=== PATIENT | male | born 1985 | race Caucasian/White ===

== ENCOUNTER 2022-08-27 03:50 | Emergency (ER) | payer OTHER ==
[~2022-08-27] VITALS: Ht 172.7 cm; Wt 77.1 kg
--- NOTE | 2022-08-27 04:00 | NUR ---
[facility] [address] [facility] L KNEE PAIN . IN [employer]'S CUSTODY. A/OX 3. TOLERATING R/A WELL WITH NO RESP DISTRESS. RR EVEN AND NON LABORED. AMBULATORY WITH STEADY GAIT. CONNECTED PT TO POX AND MONITOR. SAFETY MEASURES IN PLACE.
[2022-08-27] MEDS ORDERED: IBUPROFEN 400 MG TABLET ONE ×2 (04:16→04:18)
--- NOTE | 2022-08-27 04:20 | NUR ---
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
[2022-08-27] MEDS ORDERED: IBUPROFEN 400 MG TABLET PO ONE (04:30)
[2022-08-27 04:54] VITALS: BP 127/84
--- NOTE | 2022-08-27 04:54 | NUR ---
Patient discharged to [employer] custody in stable condition. Written and verbal after care instructions given. Patient verbalizes understanding of instruction.
== END 2022-08-27 04:55 ==
LOC: ER 03:56
DX: S20.211A Contusion of right front wall of thorax, initial encounter (principal); M25.511 Pain in right shoulder; F17.200 Nicotine dependence, unspecified, uncomplicated; Z59.00 Homelessness unspecified; Y04.2XXA Assault by strike against or bumped into by another person, initial encounter; Y93.89 Activity, other specified; Y92.039 Unspecified place in apartment as the place of occurrence of the external cause; Y99.8 Other external cause status
CPT/HCPCS: 71045-TC; 73010-TC